=== PATIENT | male | born 1980 | race African-American/Black ===

== ENCOUNTER 2020-06-23 12:56 | Emergency (ER) | payer MEDICAID ==
[~2020-06-23] VITALS: Ht 180.3 cm; Wt 74.8 kg
[~2020-06-23 12:56] MED LIST: IBUPROFEN200 M2 ORAL; NKM
[2020-06-23] MEDS ORDERED: Ketorolac 30mg Inj IV ONE ×2 (13:15→15:30)
[2020-06-23] MEDS ORDERED: Omnipaque-300 100ml vial INJ PRN (13:30)
--- NOTE | 2020-06-23 13:45 | Emergency Room Report ---
History of Present Illness General Chief Complaint: Abdominal Pain Source: Patient Present Illness HPI 39-year-old male with history of gastritis here complaining of epigastric and left lower quadrant abdominal pain that started at 11 PM last time with few bouts of nonbloody emesis. Feeling nauseated, denies diarrhea constipation. Complains of fever and chills and generalized muscle ache. Denies cough or c ongestion, chest pain, shortness of breath. Reports that he smokes marijuana on a daily basis and smokes tobacco. Also reports that he he did have a lot of alcohol this past weekend. Has not taken medication for symptom relief. Rates the pain 10 out of 10. Vital signs otherwise within normal limits. Denies urinary symptoms. Denies other drug use. Denies any history of abdominal surgery Allergies: Coded Allergies: Shrimp (Unverified Allergy, Severe, Shortness of Breath, 03/22/16) PINEAPPLE (Unverified Allergy, Unknown, Rash, 03/22/16) COVID-19 Screening Contact w/high risk pt: No Experienced COVID-19 symptoms?: Yes COVID-19 Testing performed MS [employer] DBA: No Patient History Past Medical History: see triage record Past Surgical History: none Pertinent Family History: none Social History: Reports: smoking, drug use - Marijuana Immunizations: UTD Reviewed Nursing Documentation: PMH: Agreed; PSxH: Agreed Nursing Documentation-PMH Past Medical History: No History, Except For Review of Systems All Other Systems: negative except mentioned in HPI Physical Exam Vital Signs Date Time Temp Pulse Resp B/P (MAP) Pulse Ox O2 Delivery O2 Flow Rate FiO2 06/23/20 13:01 99.1 66 20 137/86 (103) 96 Room Air Sp02 EP Interpretation: reviewed, normal General Appearance: alert, GCS 15, non-toxic, mild distress Head: normocephalic, atraumatic Eyes: bilateral eye normal inspection, bilateral eye PERRL ENT: hearing grossly normal, normal pharynx, no angioedema, normal voice Neck: full range of motion, supple/symm/no masses Respiratory: chest non-tender, lungs clear, normal breath sounds, no rhonchi, no respiratory distress, no retraction, speaking full sentences Cardiovascular #1: regular rate, rhythm, no edema Gastrointestinal: no mass, no organomegaly, no peritonitis, no bruit, non- distended, no pulsatile mass, no rebound, guarding - Epigastric and left lower quadrant Rectal: deferred Genitourinary: no CVA tenderness Musculoskeletal: back normal Neurologic: alert, motor strength/tone normal, oriented x3, sensory intact, responsive, speech normal Psychiatric: judgement/insight normal, memory normal, mood/affect normal, no suicidal/homicidal ideation Skin: no rash Lymphatic: no adenopathy Medical Decision Making PA Attestation All diagnoses and treatment plans were reviewed and discussed with my supervising physician Dr. Teague Diagnostic Impression: Primary Impression: Colitis Additional Impressions: Gallbladder sludge Gastritis Cannabis hyperemesis syndrome concurrent with and due to cannabis abuse UTI (urinary tract infection) ER Course 39-year-old male with history of gastritis here complaining of epigastric and left lower quadrant abdominal pain that started at 11 PM last time with few bouts of nonbloody emesis. Feeling nauseated, denies diarrhea constipation. Complains of fever and chills and generalized muscle ache. Denies cough or congestion, chest pain, shortness of breath. Reports that he smokes marijuana on a daily basis and smokes tobacco. Also reports that he he did have a lot of alcohol this past weekend. Has not taken medication for symptom relief. Rates the pain 10 out of 10. Vital signs otherwise within normal limits. Denies urinary symptoms. Denies other drug use. Denies any history of abdominal surgery Ddx considered but are not limited to: appendicitis, cholecystis, gastritis, gastroenteritis, UTI, pyelonephritis, SBO, diverticulitis, influenza with GI manifestation, VT, pancreatitis Vital signs: are WNL, pt. is afebrile H&PE are most consistent with: Colitis, gallbladder sludge, gastritis, cannabis hyperemesis, UTI ORDERS: abdominal CT, abdominal pain set, Keflex, Zofran, Pepcid, dicyclomine ED INTERVENTIONS: NS bolus,, Pepcid, zofran, toradol DISCHARGE: At this time pt. is stable for d/c to home. Will provide printed patient care instructions, and any necessary prescriptions. Care plan and follow up instructions have been discussed with the patient prior to discharge. Take medication as directed, avoid eating spicy and acidic food, avoid marijuana use, follow primary care provider, increase oral hydration, if worsening symptoms return to the emergency room CT/MRI/US Diagnostic Results CT/MRI/US Diagnostic Results : Imaging Test Ordered: CT abdomen pelvis Impression FINDINGS: Lung bases: Unremarkable. No mass. No consolidation. ABDOMEN: Liver: Unremarkable. No mass. Gallbladder and bile ducts: Query gallbladder sludge. No calcified stones. No ductal dilation. Pancreas: Unremarkable. No mass. No ductal dilation. Spleen: Unremarkable. No splenomegaly. Adrenals: Unremarkable. No mass. Kidneys and ureters: Unremarkable. No solid mass. No hydronephrosis. Stomach and bowel: Colonic wall thickening, most predominant ascending and transverse colons, worrisome for colitis. There is also thickening of the distal small bowel likely enteritis. No bowel obstruction. PELVIS: Appendix: Normal appendix. Bladder: Unremarkable. No mass. Reproductive: Unremarkable as visualized. ABDOMEN and PELVIS: Intraperitoneal space: Unremarkable. No free air. No significant fluid collection. Bones/joints: Sclerotic focus in the left sacrum. No acute fracture. No dislocation. Soft tissues: Unremarkable. Vasculature: Unremarkable. No abdominal aortic aneurysm. Lymph nodes: Small to borderline mesenteric lymph nodes. IMPRESSION: 1. Colonic wall thickening, most predominant ascending and transverse colons, worrisome for colitis. There is also thickening of the distal small bowel likely enteritis. No bowel obstruction. 2. Normal appendix. 3. Query gallbladder sludge. Last Vital Signs Date Time Temp Pulse Resp B/P (MAP) Pulse Ox O2 Delivery O2 Flow Rate FiO2 06/23/20 13:01 99.1 66 20 137/86 (103) 96 Room Air Disposition: HOME, SELF-CARE Condition: Stable Patient Instructions: Cannabis Use Disorder, Colitis, Gastritis, Adult, [id number], Urinary Tract Infection, [id number] Additional Instructions: Take medication as directed, avoid eating spicy and acidic food, avoid marijuana use, follow primary care provider, increase oral hydration, if worsening symptoms return to the emergency room Brittani Gutierrez Jun 23, 2020 13:45
[2020-06-23 13:48] LABS: HEMATOCRIT 40.6 % (42.0-52.0); HEMOGLOBIN 13.8 G/DL (14.2-18.0); MEAN CORPUSCULAR VOLUME 93 FL (80-99); PLATELET COUNT 173 K/UL (150-450); RED BLOOD COUNT 4.37 M/UL (4.70-6.10); RED CELL DISTRIBUTION WIDTH 12.6 % (11.6-14.8)
[2020-06-23 14:09] LABS: CREATINE KINASE 54 U/L (26-308)
[2020-06-23 14:16] LABS: ANION GAP 17 mmol/L (5-15); BLOOD UREA NITROGEN 12 mg/dL (7-18); CALCIUM 9.8 MG/DL (8.5-10.1); CARBON DIOXIDE 23 MMOL/L (21-32); CHLORIDE 101 MMOL/L (98-107); CREATININE 1.5 MG/DL (0.55-1.30); POTASSIUM 3.9 MMOL/L (3.5-5.1); SODIUM 141 MMOL/L (136-145)
[2020-06-23 14:26] LABS: ALANINE AMINOTRANSFERASE 15 U/L (12-78); ALBUMIN 4.8 G/DL (3.4-5.0); ALBUMIN/GLOBULIN RATIO 1.1 (1.0-2.7); ALKALINE PHOSPHATASE 54 U/L (46-116); ASPARTATE AMINO TRANSFERASE 17 U/L (15-37); BILIRUBIN,DIRECT 0.2 MG/DL (0.0-0.3); BILIRUBIN,TOTAL 1.2 MG/DL (0.2-1.0)
[2020-06-23 14:42] LABS: APPEARANCE,URINE SLIGHTLY CLOUDY; BILIRUBIN, URINE NEGATIVE (NEGATIVE); GLUCOSE, URINE (UA) 1+ (NEGATIVE); KETONES,URINE 3+ (NEGATIVE); LEUKOCYTE ESTERASE ,URINE 1+ (NEGATIVE); NITRITE,URINE NEGATIVE (NEGATIVE); PH,URINE 5 (4.5-8.0); PROTEIN,URINE 3+ (NEGATIVE); UROBILINOGEN,URINE NORMAL MG/DL (0.0-1.0)
[2020-06-23 14:47] LABS: COLOR,URINE YELLOW
--- NOTE | 2020-06-23 15:05 | Diagnostic Imaging Report ---
EXAM: CT Abdomen and Pelvis With Intravenous Contrast CLINICAL HISTORY: PAIN TECHNIQUE: Axial computed tomography images of the abdomen and pelvis with intravenous contrast. CTDI is 4.6 mGy and DLP is 250.1 mGy-cm. One or more of the following dose reduction techniques were used: automated exposure control, adjustment of the mA and/or kV according to patient size, use of iterative reconstruction technique. COMPARISON: No relevant prior studies available. FINDINGS: Lung bases: Unremarkable. No mass. No consolidation. ABDOMEN: Liver: Unremarkable. No mass. Gallbladder and bile ducts: Query gallbladder sludge. No calcified stones. No ductal dilation. Pancreas: Unremarkable. No mass. No ductal dilation. Spleen: Unremarkable. No splenomegaly. Adrenals: Unremarkable. No mass. Kidneys and ureters: Unremarkable. No solid mass. No hydronephrosis. Stomach and bowel: Colonic wall thickening, most predominant ascending and transverse colons, worrisome for colitis. There is also thickening of the distal small bowel likely enteritis. No bowel obstruction. PELVIS: Appendix: Normal appendix. Bladder: Unremarkable. No mass. Reproductive: Unremarkable as visualized. ABDOMEN and PELVIS: Intraperitoneal space: Unremarkable. No free air. No significant fluid collection. Bones/joints: Sclerotic focus in the left sacrum. No acute fracture. No dislocation. Soft tissues: Unremarkable. Vasculature: Unremarkable. No abdominal aortic aneurysm. Lymph nodes: Small to borderline mesenteric lymph nodes. IMPRESSION: 1. Colonic wall thickening, most predominant ascending and transverse colons, worrisome for colitis. There is also thickening of the distal small bowel likely enteritis. No bowel obstruction. 2. Normal appendix. 3. Query gallbladder sludge.
[2020-06-23] MEDS ORDERED: DICYCLOMINE HCL10 MG ORAL (15:16)
[2020-06-23] MEDS ORDERED: ZOFRAN4 M1 ORAL (15:16)
[2020-06-23] MEDS ORDERED: FAMOTIDINE20 MG ORAL (15:16)
[2020-06-23] MEDS ORDERED: CEPHALEXIN500 MG ORAL (15:16)
[2020-06-23] MEDS ORDERED: Ketorolac 30mg Inj ONE (15:22)
--- NOTE | 2020-06-23 15:35 | NUR ---
ED Nurse Note: Pt cleared by health care Provider for discharge. DC instructions/prescription was given and explained to pt and verbalized understanding of teachings. All medical deviecs such as ID band removed. Pt is AAO x4, ambulatory and left with all personal belongings.
[2020-06-23 16:40] VITALS: BP 137/86
== END 2020-06-23 15:40 | disposition home or self-care (01) ==
LOC: EMR 13:26
DX: K52.9 Noninfective gastroenteritis and colitis, unspecified (principal); K29.70 Gastritis, unspecified, without bleeding; N39.0 Urinary tract infection, site not specified; R11.2 Nausea with vomiting, unspecified; F12.120 Cannabis abuse with intoxication, uncomplicated; K82.9 Disease of gallbladder, unspecified; Z72.89 Other problems related to lifestyle
CPT/HCPCS: 36415; 74176; 80053; 80307; 81003; 82248; 82550; 83690; 84484; 85007; 85025; 87086; 96361; 96374; 96375; 96376; G0480; J1885; J2405; J7030; S0028; Z7502; 99284